=== PATIENT | female | born 1955 | race Caucasian/White ===

== ENCOUNTER 2017-08-30 18:14 | Emergency (ER) | payer BC ==
--- NOTE | 2017-08-30 18:22 | ER Report ---
History and Physical Time Seen By MD: 18:22 Hx. of Stated Complaint: Patient cut pinky earier today (noon) at [place]. unk tetanus shot. HPI/ROS CHIEF COMPLAINT: Finger laceration HISTORY OF PRESENT ILLNESS: This is a 61-year-old female. Little earlier today she was moving some musical equipment and ended up cutting her right fifth finger near the nail. Significant amount of bleeding which was then controlled. Uncertain exactly how the laceration happened. Painless. Last tetanus shot probably about 20 years ago. Normal sensation in the finger. Normal movement. Allergies: Coded Allergies: No Known Drug Allergies (Unverified , 08/30/17) Home Meds Active Scripts Cephalexin Monohydrate (CEPHALEXIN) 500 Mg Cap, 500 MG PO Q6H, #20 CAP 0 Refills Prov:ELSY WRIGHT MD 08/30/17 Reviewed Nurses Notes: Yes Constitutional Vital Sign - Last 24 Hours 08/30/17 08/30/17 08/30/17 08/30/17 18:16 18:18 18:19 19:10 Temp 98.7 Pulse 67 60 Resp 18 B/P (MAP) 152/82 (105) 152/82 152/79 (103) Pulse Ox 97 97 O2 Delivery Room Air 08/30/17 19:14 Pulse 58 Pulse Ox 97 Physical Exam General: Alert, no acute distress. Skin: 1.5 cm laceration dorsal 5th finger right hand. Nail not involved. Musculoskeletal: Normal movement without tendon compromise. Neuro: Normal sensation. Cardiovascular: normal cap refill. Medical Decision Making ED Course/Re-evaluation ED Course Procedure: Laceration Repair Verbal consent from patient after discussing repair options, risks and benefits. Wound cleaned extensively with Hibiclens and saline. Anesthesia: Digital block using 1% lidocaine without epinephrine and 0.5% bupivacaine without epinephrine. Location: Right fifth finger, distal phalanx near the nail without nail involvement. Length: 1.5 cm. Character: Linear into subcutaneous. There were no deep structures involved. No tendon injury was identified. Wound repair: 3 interrupted 5-0 Prolene sutures. The wound repair was simple and performed by myself. Wound care instructions discussed. Sutures need to be removed in 7 days. Tetanus booster given. Cephalexin 500mg four times a day for 5 days. Decision to Disposition Date: Aug 30, 2017 Decision to Disposition Time: 19:04 Depart Departure Latest Vital Signs Vital Signs Date Time Temp Pulse Resp B/P (MAP) Pulse Ox O2 Delivery O2 Flow Rate FiO2 08/30/17 19:14 58 97 08/30/17 19:10 152/79 (103) 08/30/17 18:18 98.7 18 Room Air Impression: Primary Impression: Finger laceration Condition: Improved Disposition: HOME OR SELF-CARE Referrals: JEREMY ESCOBAR MD (PCP) New Scripts Cephalexin Monohydrate (CEPHALEXIN) 500 Mg Cap 500 MG PO Q6H, #20 CAP 0 Refills Prov: ELSY WRIGHT MD 08/30/17 Patient Instructions: Finger Laceration (ED) Additional Instructions: Wound Care: Wash the wound once a day with soap and water. Dry the wound and apply a small amount of antibiotic ointment with a clean dressing. If the dressing becomes wet or dirty, repeat cleaning and dressing as above. No soaking the wound; no swimming. Stitches need to be removed in 7 days. Pain Control: Use Tylenol or ibuprofen for pain. Using and ice pack can help reduce swelling. Antibiotic: Cephalexin 500mg 4 times a day for 5 days. Problem Qualifiers Primary Impression: Finger laceration Encounter type: initial encounter Finger: little finger Damage to nail status: without damage Foreign body presence: without foreign body Laterality: right Qualified Codes: S61.216A - Laceration without foreign body of right little finger without damage to nail, initial encounter ELSY WRIGHT MD Aug 30, 2017 18:22
[2017-08-30] MEDS ORDERED: DIPHTH/TETANUS/ACEL. PERTUSSIS IM ONLY ONE (18:35)
[2017-08-30] MEDS ORDERED: CEPH500C24 PO (19:07)
[2017-08-30 19:10] VITALS: BP 152/79
== END 2017-08-30 19:26 | disposition home or self-care (01) ==
LOC: ER 18:27
DX: S61.216A Laceration without foreign body of right little finger without damage to nail, initial encounter (principal)
CPT/HCPCS: 90471; 90715; 99284

== ENCOUNTER → 2017-09-03 | Outpatient (CLI) | payer BC ==
[~2017-09-03] MED LIST: CEPH500C24 PO
--- NOTE | 2017-09-04 11:44 | RADIOLOGY IMAGING REPORT ---
FACILITY: [facility] - [place] PATIENT NAME: ERNA PEARCE : [id number] MR: [id number] V: [id number] EXAM DATE: [id number] ORDERING PHYSICIAN: JEREMY ESCOBAR TECHNOLOGIST: Madelyn Walters PROCEDURE:BILATERAL DIGITAL SCREENING MAMMOGRAM WITH CAD ASSISTED INTERPRETATION & 3D BREAST TOMOSYNTHYSIS COMPARISON:Prior mammograms 06/23/16, 03/27/15, 03/22/14, 04/30/11 INDICATIONS:screening FINDINGS: Moderately dense fibroglandular tissue is seen throughout the breasts. The parenchymal pattern has remained stable allowing for difference in mammographic technique & patient positioning. There is no evidence of malignant appearing mass, malignant appearing calcification or secondary sign of malignancy in either breast. DIAGNOSTIC CATEGORY 1--NEGATIVE. RECOMMENDATIONS: ROUTINE MAMMOGRAM AND CLINICAL EVALUATION. IMPRESSION: BIRADS 1: Negative 1. No significant abnormality is seen. Dictated by: Mariluz Lee M.D. on 09/03/2017 at 15:32 Transcribed by: ANDREW on 09/04/2017 at 10:37 Approved by: Mariluz Lee M.D. on 09/04/2017 at 11:43 [facility]
== END ==
LOC: MAMO 02:02
PROVIDERS: ATTEND Obstetrics & Gynecology
DX: Z12.31 Encounter for screening mammogram for malignant neoplasm of breast (principal)
CPT/HCPCS: 77063; 77067

== ENCOUNTER → 2019-01-07 | Outpatient (CLI) | payer BC ==
--- NOTE | 2019-01-07 12:47 | RADIOLOGY IMAGING REPORT ---
FAC[place] [facility] [place]IENT NAME: Dilcia Simon : 1955 MR: [id number] V: [id number] EXAM DATE: ORDERING PHYSICIAN: GONZÁLEZ RODRIGUEZ TECHNOLOGIST: Location: [facility] Patient: Dilcia Simon : 1955 Visit/Account:[id number] Date of Sevice: 01/07/2019 BONE DENSITY DEXA Scan Clinical history: Osteopenia. Comparison: None available. LUMBAR SPINE: The bone mineral density (BMD) measured from L1-L4 correlates with a Z-score -0.2 and a T-score of -2 .0 which is osteopenia as defined by the World Health Organization. The corresponding risk of fractu re in the lumbar spine is increased 4 times compared with a young adult reference population. HIP: Bone mineral density (BMD) measured in the Left total hip region correlates with a Z-score -1.3 and a T-score of -2.7 which is osteoporosis as defined by the World Health Organization. The correspondin g risk of fracture in the hip is increased 7 times compared with a young adult reference population. Bone mineral density (BMD) measured in the Femoral Neck region measures 0.669. g/cm2. T score -2.7. Osteoporosis. Fracture risk increased 7 times Impression: 1. Lumbar spine: Osteopenia. 2. Left Total Hip: Osteoporosis. 3. Femoral Neck: Bone Mineral Density is 0.669. g/cm2. Osteoporosis The next DEXA scan of this patient should include the following sites: L1-L4 and the left hip. FRAX? WHO Fracture Risk Assessment Tool link: <http://www.shef.ac.uk/FRAX/tool.jsp?locationValue=9> PLEASE NOTE: 1) The World Health Organization defines low BMD as follows: T-score Normal > -1 Osteopenia < -1 and > -2.5 Osteoporosis < -2.5 without fractures Established osteoporosis < -2.5 with fractures 2) In general, you may wish to consider: Diagnosis Treatment Follow-up DEXA Normal BMD Prevention 2-3 years Osteopenia Prevention/therapy 1-2 years Osteoporosis Therapy Yearly 3) Fracture risk estimated from the T-score is more accurate for vertebral fractures (often spontane ous) than for hip fractures. Report Dictated By: Silvestre Gay MD at 01/07/2019 12:41 PM Report E-Signed By: Silvestre Gay MD at 01/07/2019 12:42 PM CADYN:NALLELY
--- NOTE | 2019-01-07 15:20 | RADIOLOGY IMAGING REPORT ---
FACILITY: [facility] - [place] PATIENT NAME: ERNA PEARCE : [id number] MR: [id number] V: [id number] EXAM DATE: [id number] ORDERING PHYSICIAN: GONZÁLEZ RODRIGUEZ TECHNOLOGIST: Madelyn Walters PROCEDURE: BILATERAL DIGITAL SCREENING MAMMOGRAM WITH CAD ASSISTED INTERPRETATION & 3D TOMOSYNTHESIS REASON FOR STUDY: Screening FAMILY HISTORY OF BREAST CANCER: Mother BREAST PROCEDURES/TREATMENTS: None COMPARISON: 09/03/17, 06/23/16, 03/27/15, 03/22/14 VIEWS OBTAINED: Bilateral 2D & 3D full field CC & MLO projections BREAST DENSITY: The breasts are heterogeneously dense which can obscure small masses. MAMMOGRAM FINDINGS: The parenchymal pattern has remained stable allowing for difference in mammographic technique & patient positioning. IMPRESSION: BIRADS 1: Negative. DIAGNOSTIC CATEGORY 1--NEGATIVE. RECOMMENDATIONS: ROUTINE MAMMOGRAM AND CLINICAL EVALUATION. Dictated by: Mariluz Lee M.D. on 01/07/2019 at 11:31 Transcribed by: ANDREW on 01/07/2019 at 12:24 Approved by: Mariluz Lee M.D. on 01/07/2019 at 15:18 [facility]
== END ==
LOC: MAMO 02:08
PROVIDERS: ATTEND Nurse Practitioner Family
DX: Z12.31 Encounter for screening mammogram for malignant neoplasm of breast (principal); M81.0 Age-related osteoporosis without current pathological fracture; Z80.3 Family history of malignant neoplasm of breast
CPT/HCPCS: 77063; 77067; 77080